=== PATIENT | female | born 1990 | race Caucasian/White ===

== ENCOUNTER 2017-06-25 03:53 | Emergency (ER) | payer MEDICAID ==
--- NOTE | 2017-06-25 05:54 | NUR ---
SEE PAPER CHAT
== END 2017-06-25 05:00 | disposition left against medical advice (07) ==
LOC: ER 03:53 → MERGE 03:53 → ER 05:00
DX: Z75.3 Unavailability and inaccessibility of health-care facilities (principal)

== ENCOUNTER 2017-06-25 06:41 | Emergency (ER) | payer MEDICAID ==
[~2017-06-25] VITALS: Ht 162.6 cm; Wt 61.2 kg
[2017-06-25 06:41] VITALS: BP 148/89
== END 2017-06-25 07:52 | disposition home or self-care (01) ==
LOC: ER 06:44
DX: L03.114 Cellulitis of left upper limb (principal); M32.9 Systemic lupus erythematosus, unspecified; F17.200 Nicotine dependence, unspecified, uncomplicated; F41.0 Panic disorder [episodic paroxysmal anxiety]; F25.9 Schizoaffective disorder, unspecified; Z59.0 Homelessness; Z88.6 Allergy status to analgesic agent; Z88.8 Allergy status to other drugs, medicaments and biological substances
CPT/HCPCS: 99284; A4606; Z7610